=== PATIENT | male | born 1985 | race Caucasian/White ===

== ENCOUNTER 2025-01-16 10:49 | Emergency (ER) | payer OTHER, SELFPAY ==
[2025-01-16 10:54] VITALS: BP 142/102; BP 145/111; PULSE 96; RESP 17; TEMP 37.1; O2SAT 97
[2025-01-16 11:31] VITALS: BMI 22.8
--- NOTE | 2025-01-16 11:46 | XR_ITS ---
Examination: Abdomen AP single view Technique: AP portable supine abdomen, single view Exam date and time: January 16, 2025 1210 hours INDICATIONS: Ingested foreign body today. FINDINGS: Opaque foreign body consistent with a razor blade projects in the left upper abdomen Abundant stool throughout the colon IMPRESSION: Positive for opaque foreign body consistent with a razor blade projecting in the left abdomen
--- NOTE | 2025-01-16 11:59 | PC.NURSE ---
PT REPORTS THAT HE SWALLOWED A RAZOR BLADE LAST NIGHT AND REPORTED TO THE MEDICAL STAFF AT THE [facility] AND WAS PLACED IN A SAFETY CELL AND PT WAS EVALUATED BY MENTAL HEALTH AT THE [facility]; AND PT WAS SEND TO ER FOR FOR POSSIBLE INDIGESTIONS OF A RAZOR BLADE. PT IS A GCS OF 15, A&OX4, NOT IN ANY DISTRESS AND NOT C/O OF ANY PAIN OR DISCOMFORT.
--- NOTE | 2025-01-16 12:06 | PD.EDADULT ---
ED General RME/HPI General Chief complaint: Overdose Stated complaint: STATES HE SWALLOWED A RAZOR Arrival date/time: 01/16/25 10:49 RME / HPI RME / HPI narrative: 39 year old male with no stated medical history presents to the ED [facility] from [facility] for complaint of swallowing one razor blade at 02:00 AM today. States he was scared for my life . While in the ED has no complaints. Denies abdominal pain, nausea, vomiting. Related Data Previous Rx's ?Medication ?Instructions ?Recorded peg 3350-electrolytes 236 240 ml PO Q10M #2,000 mL 01/16/25 gram-22.74 gram-6.74 gram-5.86 gram solution (Golytely) Allergies Allergy/AdvReac Type Severity Reaction Status Date / Time No Known Allergies Allergy Verified 03/18/22 15:55 Review of Systems Review of Systems Narrative Review of Systems: Gen: No fever, no chills, no weight loss EYES: No discharge, no visual changes, no pain HEENT: No ear pain, no congestion, no sore throat PULM: no shortness of breath, no cough, no congestion CV: No chest pain, no palpitations, no chest tightness GI: No nausea, no vomiting, no diarrhea, no pain, no constipation : No frequency, no urgency,? no dysuria Musc/skel: No joint pain, no back pain Skin: No rash, no ecchymosis, no lesions Psyc: + scared for my life states he swallowed a razor blade. No hallucinations, no depression Neuro: No weakness, no headache Past Medical History Past Medical History CARDIAC: Negative Congestive Heart Failure RESPIRATORY: Negative Chronic Obstructive Pulmonary Disease (COPD) GENITOURINARY: Negative Renal Disease ENDOCRINE: Negative Diabetes Mellitus Type 1 or Diabetes Mellitus Type 2 Social History SMOKING STATUS: Former smoker ED Exam Narrative Physical exam: GENERAL APPEARANCE: AxOx4, no obvious distress, nontoxic appearing HEENT: NC, AT. MMM. EOMI, clear conjunctiva, oropharynx clear. NECK: Supple without lymphadenopathy. No stiffness or restricted ROM. HEART: Normal rate and regular rhythm, normal S1/S1, no m/r/g LUNGS: CTAB, moving air well. No crackles or wheezes are heard. ABDOMEN: Soft, nontender, nondistended with good bowel sounds heard. BACK: No midline C/T/L spine pain or deformity, No CVAT, no obvious deformity. EXTREMITIES: Without cyanosis, clubbing or edema. MUSCULOSKELETAL: FROM of all major joints, no chest tenderness NEUROLOGICAL: Grossly nonfocal. Alert and oriented, moving all 4 extremities. CN not formally tested but appear grossly intact. Skin: Warm and dry without any rash. Course Quality Measures none Orders Category Date Time Status CT abdomen pelvis wo con Stat Exams 01/16/25 12:49 Completed XR abdomen 1V Stat Exams 01/16/25 11:46 Completed Vital Signs Vital signs: Vital Signs Temperature 98.7 F 01/16/25 10:54 Pulse Rate 96 01/16/25 10:54 Respiratory Rate 17 01/16/25 10:54 Blood Pressure 145/111 H 01/16/25 10:54 Pulse Oximetry (%) 97 01/16/25 10:54 Oxygen Delivery Method Room Air 01/16/25 10:54 Pulse ox is 97% on room air which is adequate. Discharge Plan Plan Patient Disposition: HOME (Self Care) Prescriptions/Referrals Prescriptions/Med Rec: New peg 3350-electrolytes [Golytely] 236-22.74-6.74 -5.86 gram recon soln 240 ml PO Q10M Qty: 2000 0RF Rx Instructions: until fecal effluent is clear Referrals: No Primary/Family,Physician [Primary Care Provider] - In 1 week Problem List Clinical Impression: Foreign body ingestion Patient/Caregiver Discharge Instructions Education Materials: ED Swallowed Foreign Body (Adult) Additional Instructions: On the CT scan the regimen appears to be ready to pass through your colon. A laxative that helps with a bowel cleanse called GoLytely has been sent to the pharmacy. Take as instructed. Do not swallow any further dangerous objects. Print Language: Georgian Stand Alone Forms: Ashlee Award Info., Patient Portal Info Letter MDM Narrative [facility] hospital course: Faviola Spencer am scribing for and in the presence of Dr. Che. 39 year old male with no stated medical history who was brought to the ED by [facility] from [facility] for evaluation after reportedly swallowing a razor blade at approximately 02:00 AM today. At the time of evaluation in the ED, he is asymptomatic and denies abdominal pain, nausea, vomiting, or any other complaints. Abdominal imaging confirmed the presence of a foreign body consistent with a razor blade in the descending colon near the splenic flexure. No signs of perforation, obstruction were noted on imaging or clinical exam. I discussed the case with GI Dr. Coronel, who recommended GoLYTELY to promote passage of the object and discharge back to long-term. No emergent endoscopic or surgical intervention indicated at this time. Patient remains clinically stable throughout the emergency department visit. We reviewed all the results, analysis, and treatment plans. Patient is amenable to discharge. Strict return precautions were outlined. Patient was discharged in stable condition. Clinical Information Provided by patient Medical Records Reviewed EMS and Senior Care Meds/Rx Considered, not Ordered None Labs/Rad/Tests considered, not Ordered None Chronic Illness/Social Conditions which may negatively complicate care or outcome(s)-explain: other (Currently incarcerated ) EKG EKG not done Lab Interpretation Labs: none Imaging Imaging interpretation: see narrative above Radiology reports / interpretation(s): Ordering Physician: Carlos Enrique Che MD Date of Service: 01/16/25 Procedure(s): XR abdomen 1V Accession Number(s): [id number] cc: Carlos Enrique Che MD; Vinnie Bui MD; NO PRIMARY/FAMILY,PHYSICIAN~ Examination: Abdomen AP single view Technique: AP portable supine abdomen, single view Exam date and time: January 16, 2025 1210 hours INDICATIONS: Ingested foreign body today. FINDINGS: Opaque foreign body consistent with a razor blade projects in the left upper abdomen Abundant stool throughout the colon IMPRESSION: Positive for opaque foreign body consistent with a razor blade projecting in the left abdomen Dictated By:Vinnie Bui MD Signed By:<Electronically signed by Vinnie Bui MD in OV>01/16/25 1224 Ordering Physician: Carlos Enrique Che MD Date of Service: 01/16/25 Procedure(s): CT abdomen pelvis wo con Accession Number(s): [id number] cc: Carlos Enrique Che MD; Vinnie Bui MD; NO PRIMARY/FAMILY,PHYSICIAN~ Examination: CT abdomen and pelvis without contrast. Coronal 3-D reconstructions. Sagittal 2-D reconstructions. Date and time of exam:January 16, 2025 1307 hours INDICATIONS: Ingested razor blade today CTDI: vol (mGy): 5.13 DLP: (mGycm): 188 Technique: Axial 59 through 50, projecting in the upper descending colon of the abdomen have been obtained, 3 mm slice thickness Intravenous contrast material has not been administered. Low dose protocols were performed. One or more of the following dose reduction techniques were used; automated exposure control, adjustment of the mA and/or KV according to patient size, use of iterative reconstruction technique. Findings: No focal liver or splenic lesion No gallstones. No pancreatic mass Linear opaque foreign body consistent with a razor blade projects in the left upper abdomen, coronal image 28, axial image 53, projecting in the descending colon near the splenic flexure No renal or ureteral calculi Negative for pneumoperitoneum Urinary bladder intact No prostatomegaly IMPRESSION: Positive for foreign body consistent with a razor blade projecting in left upper abdomen in the descending colon near the splenic flexure Dictated By:Vinnie Bui MD Signed By:<Electronically signed by Vinnie Bui MD in OV>01/16/25 1335 Medication Administration(s) none Consultations/Discussions re: Management Consult #1: Date/time: 01/16/25 13:44 Physician, specialty, service, details: I spoke with GI Dr. Coronel. Discussed patient?s HPI, PMHx, lab and radiology results. Reports patient can be given Golytely and discharge back to long-term. Consult #2: Date/time: 01/16/25 14:55 Physician, specialty, service, details: I spoke with RN Rayne at [facility] and report was given. Aware of GI's recommendations. Diagnosis Most likely dx, and/or detailed dx discussion: Foreign body ingestion Dispositon Disposition: Discharge Home
--- NOTE | 2025-01-16 12:49 | XR_ITS ---
Examination: CT abdomen and pelvis without contrast. Coronal 3-D reconstructions. Sagittal 2-D reconstructions. Date and time of exam:January 16, 2025 1307 hours INDICATIONS: Ingested razor blade today CTDI: vol (mGy): 5.13 DLP: (mGycm): 188 Technique: Axial 59 through 50, projecting in the upper descending colon of the abdomen have been obtained, 3 mm slice thickness Intravenous contrast material has not been administered. Low dose protocols were performed. One or more of the following dose reduction techniques were used; automated exposure control, adjustment of the mA and/or KV according to patient size, use of iterative reconstruction technique. Findings: No focal liver or splenic lesion No gallstones. No pancreatic mass Linear opaque foreign body consistent with a razor blade projects in the left upper abdomen, coronal image 28, axial image 53, projecting in the descending colon near the splenic flexure No renal or ureteral calculi Negative for pneumoperitoneum Urinary bladder intact No prostatomegaly IMPRESSION: Positive for foreign body consistent with a razor blade projecting in left upper abdomen in the descending colon near the splenic flexure
[2025-01-16 14:32] VITALS: BP 134/98; PULSE 83; RESP 16; TEMP 36.9; O2SAT 98
--- NOTE | 2025-01-16 14:59 | PC.NURSE ---
Dr. Che giving report to a adriana going back to [facility], ARTEM Xiao received report.
--- NOTE | 2025-01-16 15:02 | PC.CC ---
ASW contacted [facility]?Intake Office Communication Professor ? [phone] and asked to speak to the RN, as they requested to have our provider give report prior to the pt returning to [facility]. Dr. Che provided report to ARTEM Mclain. Deputy Uribe is at bedside with pt.
[2025-01-16 15:13] VITALS: BP 120/84; PULSE 71; RESP 16; TEMP 36.8; O2SAT 97
== END 2025-01-16 15:14 | disposition home or self-care (01) ==
PROVIDERS: Emergency Provider Emergency Medicine
DX: T18.9XXA Foreign body of alimentary tract, part unspecified, initial encounter (principal); W44.9XXA Unspecified foreign body entering into or through a natural orifice, initial encounter
CPT/HCPCS: 74018; 74176; 96127; 99284